=== PATIENT | male | born 1940 | race Caucasian/White ===

== ENCOUNTER → 2018-01-05 | Day surgery (SDC) | payer MEDICARE ==
[2017-12-28 12:04] LABS: BASOPHILS % 0.3 % (0.0-1.0); EOSINOPHILS % 0.3 % (0.0-6.0); HEMATOCRIT 44.5 % (38.2-49.6); HEMOGLOBIN 14.7 g/dL (14.0-18.0); LYMPHOCYTES # (AUTO) 1.2 (1.0-3.2); LYMPHOCYTES % 17.5 % (18.0-39.1); MEAN CORPUSCULAR HEMOGLOBIN 30.2 pg (28-32); MEAN CORPUSCULAR VOLUME 91.4 fL (81-99); MONOCYTES # (AUTO) 0.5 (0.2-0.8); NEUTROPHILS # (AUTO) 5.1 (2.1-6.9); NEUTROPHILS % 74.6 % (38.7-80.0); PLATELET COUNT 143 x10e3/uL (140-360); RED BLOOD COUNT 4.87 x10e6/uL (4.3-5.7); RED CELL DISTRIBUTION WIDTH 14.2 % (11.7-14.4)
[2017-12-28 12:19] LABS: INR 1.14; PROTHROMBIN TIME 13.7 seconds (11.9-14.5)
[2017-12-28 12:20] LABS: PARTIAL THROMBOPLASTIN TIME 27.5 seconds (23.8-35.5)
[2017-12-28 12:24] LABS: ANION GAP 12.5 mmol/L (8-16); CALCIUM 9.7 mg/dL (8.4-10.2); CREATININE, SERUM 1.62 mg/dL (0.72-1.25); POTASSIUM 4.5 mmol/L (3.5-5.1)
--- NOTE | 2017-12-28 12:36 | Diagnostic Imaging Report ---
PROCEDURE: Frontal and lateral views of the chest. COMPARISON: None. INDICATIONS: PRE-OP. Coronary artery disease. Chest pain. Carotid. FINDINGS: Lines/tubes: None. Lungs: The lungs are well inflated and clear. There is no evidence of pneumonia or pulmonary edema. Calcified granulomas in the left upper lung and calcified bilateral hilar lymph nodes. Pleura: There is no pleural effusion or pneumothorax. Heart and mediastinum: The heart and the mediastinum are normal. LAD calcification versus stent. Bones: No acute bony abnormality. IMPRESSION: No acute cardiopulmonary disease. Dictated by: Efren Vernon M.D. on 12/28/2017 at 12:38 Electronically approved by: Efren Vernon M.D. on 12/28/2017 at 12:38
[~2018-01-05] VITALS: Ht 177.8 cm; Wt 78.9 kg
[~2018-01-05] MED LIST: ALLOPURINOL300 MG PO; AMLODIPINE BESY10 MG PO; ASPIRIN325 MG PO; ATORVASTATIN CA20 MG PO; CLONIDINE HCL0.1 MG PO; FENTANYL CITRATE/PF 100MCG/2 ML INJ ONE; FISH OIL 1,0001 EAC2 PO; HEPARIN SOD/SOD CHLORIDE 2,000 ML ONE; IOPAMIDOL 370 MG/ML 200 ML INFUS..BTL INJ ONE; LIDOCAINE HCL 2% LOCAL 20 ML VIAL ONE; LOSARTAN POTASS50 MG PO; MIDAZOLAM HCL 2 MG/2 ML VIAL ONE; MIRALAX17 GM PO; NITROGLYCERIN0.4 MG SL; PANTOPRAZOLE SO40 MG PO; SODIUM CHLORIDE 0.9% 1000ML 1,000 ML ONE; SUCRALFATE1 GM PO
[2018-01-05 06:49] VITALS: BP 118/66
--- OUTSIDE RECORDS SUMMARY | 2018-01-05 07:08 | XMS REPORT ---
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 Allergies, Adverse Reactions, Alerts This patient has no known allergies or adverse reactions. Medications This patient has no known medications. Results Test Description Test Time Test Comments Text Results Atomic Results Result Comments CHEST 2 VIEWS [place] [address] Patient Name: BOOKER SMITH MR #: [id number] : 1940 Age/Sex: 77/M Req #: [id number] Adm Physician: Ordered by: NANCY TAVERA MD Report #: [id number] Location: MANAGER IT TRAINING Room/Bed: Procedure: 0510- 0028 DX/CHEST 2 VIEWS Exam Date: Exam Time: REPORT STATUS: Signed PROCEDURE: Frontal and lateral views of the chest. COMPARISON: None. INDICATIONS: PRE-OP. Coronary artery disease. Chest pain. Carotid. FINDINGS: Lines/tubes: None. Lungs: The lungs are well inflated and clear. There is no evidence of pneumonia or pulmonary edema. Calcified granulomas in the left upper lung and calcified bilateral hilar lymph nodes. Pleura: There is no pleural effusion or pneumothorax. Heart and mediastinum: The heart and the mediastinum are normal. LAD calcification versus stent. Bones: No acute bony abnormality. IMPRESSION: No acute cardiopulmonary disease. Dictated by: Cecily Vernon M.D. on 12/28/2017 at 12:38 Electronically approved by: Cecily Vernon M.D. on 12/28/2017 at 12:38 Dictated By: CECILY VERNON MD [id number] Transcribed By: TRISTAN on 12/28/17 1238 COPY TO: NANCY TAVERA MD
--- NOTE | 2018-01-05 09:12 | Discharge Summary ---
FINAL DIAGNOSIS 1. Carotid stenosis. 2. Coronary artery disease. PROCEDURES PERFORMED: On the patient include: 1. Carotid angiogram, selective. 2. Left heart catheterization. HOSPITAL COURSE: The patient was admitted electively for a carotid angiogram and left heart catheterization. Carotid angiogram demonstrated 100% occlusion of the right common carotid artery. The right internal carotid artery and right external carotid artery filled briskly by collaterals. There was minimal disease in the carotid artery. The angiogram was completed at about 8:30 a.m., and arrangements were made for the patient to be discharged and 11 a.m. Patient was instructed to return to the office for followup in 1 week. NANCY TAVERA MD Job#: [id number] [place]
--- NOTE | 2018-01-05 09:34 | Operative Report ---
DATE OF PROCEDURE: January 05, 2018 PROCEDURE: Carotid angiogram and left heart catheterization. INDICATIONS: Carotid stenosis and coronary artery disease. COMPLICATIONS: None. ANESTHESIA: Versed, fentanyl and lidocaine. TECHNIQUE: The right groin was draped and prepped in the usual fashion. The area was anesthetized with lidocaine. Standard Seldinger technique was used to place a 6-Romanian sheath into the right femoral artery without difficulty. A pigtail catheter was used to perform an angiogram of the aortic arch. A Sim 1 catheter was used to selectively engage the right coronary artery. A JR4 catheter was used to selectively engage the left carotid artery. A JL4 catheter was then used to selectively engage the left coronary artery. A 3DRC catheter was used to selectively engage the right coronary artery. An Angio-Seal device was used for closure. There were no complications. Results are as follows: 1. The right common carotid artery was completely occluded in its mid portion. The right internal carotid artery and right external carotid artery could be seen filling by collaterals and reconstituted very briskly. 2. Left carotid artery: The left common carotid artery, left internal carotid artery and left external carotid artery all had only minimal disease. 3. Left main trunk: The left main trunk was normal. 4. Left anterior descending artery: The left anterior descending artery was a large vessel, which gave rise to a medium-size diagonal branch. There was a patent stent in the mid portion of the left anterior descending artery. There was about 50% stenosis in the origin of the diagonal artery. 5. Left circumflex artery was a medium-size vessel, which gave rise to a large bifurcating obtuse marginal branch with minimal disease in the circumflex system. 6. The right coronary artery was a large, dominant vessel with a patent stent in its mid portion. 7. The angiogram of the aortic arch demonstrated no dissection and no aneurysm. CONCLUSION: The patient has 100% occlusion of the right common carotid artery. The right internal carotid artery and right external carotid artery reconstitute briskly by collaterals. There is minimal disease in the left carotid artery. Job#: [id number]
[2018-01-05 10:45] VITALS: BP 162/86
== END | disposition home or self-care (01) ==
LOC: CATH LAB 07:05
PROVIDERS: ATTEND Internal Medicine Cardiovascular Disease
DX: I25.10 Atherosclerotic heart disease of native coronary artery without angina pectoris (principal); I65.21 Occlusion and stenosis of right carotid artery; I10 Essential (primary) hypertension; E78.5 Hyperlipidemia, unspecified; R06.02 Shortness of breath; M10.9 Gout, unspecified; M19.90 Unspecified osteoarthritis, unspecified site; Z01.810 Encounter for preprocedural cardiovascular examination; Z01.812 Encounter for preprocedural laboratory examination; Z01.818 Encounter for other preprocedural examination; Z79.82 Long term (current) use of aspirin; Z95.5 Presence of coronary angioplasty implant and graft; Z82.49 Family history of ischemic heart disease and other diseases of the circulatory system
CPT/HCPCS: 36222; 36223; 36415; 71046; 80048; 85025; 85610; 85730; 93005; 93454; C1769 ×2; J2001; J2250; J7030; Q9967; 36140; 36200; 77001; 93458